=== PATIENT | female | born 1995 | race Caucasian/White ===

== ENCOUNTER → 2017-03-11 22:41 | Observation (INO) ==
--- NOTE | 2017-03-11 20:25 | OB/GYN Progress Note ---
Date of Encounter: 03/11/17 Time of Encounter: 19:57 - Assessment and Plan (1) Decreased movement Current Visit: Yes Status: Acute Fetus responded to scalp stimulation NST was category 1 following scalp stimulation Now category 2 Failure of oral hydration so we have started IV, LR bolus Will continue to monitor Qualifiers: Fetus number: single or unspecified fetus Trimester: third trimester Qualified Code(s): O36.8130 - Decreased movements, third trimester, not applicable or unspecified (2) 33 weeks gestation of Current Visit: Yes Status: Acute Cervix closed and thick Tocometry monitored and was reassuring Patient discharged in stable condition (3) Non-stress test reactive Current Visit: Yes Status: Acute Baseline 125-130 bpm moderate variability (4) Vaginal discharge Current Visit: Yes Status: Acute Vaginosis panel negative. Subjective - Subjective Principal diagnosis: decreased movement Interval history: Elyssa Puentes is a 21 year-old female at 33 weeks and 6 days who presents to labor and delivery for decreased movement starting today. She also describes pain, "like period cramps," that started this morning. She admits to scant vaginal bleeding that has occured intermittently over the past 2 weeks. She additionally acknowledges some vaginal discharge. Patient admits to shortness of breath that does not affect activity, as well as intermittent bilateral LE swelling. Patient denies nausea, vomiting, diarrhea, chest pain, headache, visual disturbance, and upper abdominal pain. 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 She is a patient of Dr. Ricci. She was last seen in the office by Belen Mancia CNM on 03/06/2017. Blood type: O-, received RhoGAM Rubella and Varicella Immune Hep B negative All other serologies negative Antepartum ROS: contractions, other (decreased movement) Objective - Exam FHR: category 1 FHR comments: Baseline 125-130 bpm Moderate variability 15x15 accelerations Auscultation: bilateral: normal Abdomen: Present: normal appearance, soft, gravid. Absent: tenderness Uterus: Present: normal, firm. Absent: tenderness Cervical dilation: Closed Cervix effacement: Thick Comments: SSE - visually closed cervix. Increase in vaginal discharge, collected for vaginosis panel - negative.
[2017-03-11 20:44] LABS: Bilirubin,Urine Negative (Negative); Blood,Urine Negative (Negative); Clarity,Urine Clear (Clear); Color,Urine Yellow (Yellow); Glucose,Urine (UA) 100 mg/dL (Normal); Ketones,Urine Negative (Negative); Leukocyte Esterase,Urine Negative (Negative); Nitrite,Urine Negative (Negative); Protein,Urine Trace mg/dL (Neg-Trace); Specific Gravity,Urine 1.022 (1.010-1.025); Urobilinogen,Urine Normal (Normal)
[2017-03-11 20:46] LABS: Hyaline Casts,Urine None Seen per lpf (None-Few); RBC,Urine 0-3 per hpf (0-3); WBC,Urine 0-3 per hpf (0-3)
[2017-03-11 20:49] LABS: Amphetamine Screen,Urine Negative ng/mL (Cutoff=1000); Barbiturate Screen,Urine Negative ng/mL (Cutoff=200); Benzodiazepines Screen,Urine Negative ng/mL (Cutoff=200); Cannabinoid Screen,Urine Negative ng/mL (Cutoff = 50); Cocaine Screen,Urine Negative ng/mL (Cutoff= 300); Opiate Screen,Urine Negative ng/mL (Cutoff=300); Phencyclidine Screen,Urine Negative ng/mL (Cutoff=25)
[2017-03-11 20:59] LABS: Bacteria,Urine Few per hpf (None-Few); Squamous Epithelial Cell,Urine Few per lpf (None-Few)
[2017-03-11 21:29] LABS: Candida DNA Not Detected (Not Detect); Gardnerella DNA Not Detected (Not Detect); Trichomonas DNA Not Detected (Not Detect)
[~2017-03-11 22:41] MED LIST: Ringers Solution, Lactated 1,000 ML IVC ONE
== END | disposition home or self-care (01) ==
LOC: 1NENULAB
PROVIDERS: ADMIT Advanced Practice Midwife; ATTEND Advanced Practice Midwife

== ENCOUNTER → 2017-03-12 16:46 | Observation (INO) ==
--- NOTE | 2017-03-12 15:38 | OB/GYN Progress Note ---
Date of Encounter: 03/12/17 Time of Encounter: 15:36 - Assessment and Plan (1) 34 weeks gestation of Current Visit: Yes Status: Acute Admit for observation and labor evaluation (2) Vaginal discharge during in third trimester Current Visit: Yes Status: Acute Nitrazine for ROM (3) Decreased movement during in third trimester, antepartum Current Visit: Yes Status: Acute Non-stress test Qualifiers: Fetus number: single or unspecified fetus Qualified Code(s): O36.8130 - Decreased movements, third trimester, not applicable or unspecified Subjective - Subjective Principal diagnosis: Decreased movement, LOF, ctx Interval history: Pt is a at 34 weeks here with complaint of decreased movement, leakage of fluid and ctx. Antepartum ROS: new complaints (Decreased movement), loss of fluid (Pt states LOF stopped at 1400), contractions Objective - Vital Signs Vital Signs: Intake and Output 03/11/17 03/12/17 03/12/17 23:59 07:59 15:59 Other: Weight 65.2 kg Patient Weight 03/12/17 23:59 Weight 65.2 kg - Exam FHR: category 1 FHR comments: FHR 120 bpm, moderate variability, +15x15 accels, no decels. Category 1 tracing Auscultation: bilateral: normal Abdomen: Present: normal appearance, soft, gravid Uterus: Present: normal Cervical dilation: 1 Cervix effacement: 70% station: ballotable Comments: Per RN. Nitrazine negative.
--- NOTE | 2017-03-12 16:47 | Discharge Summary ---
Date of Encounter: 03/12/17 Time of Encounter: 16:46 - Discharge Diagnosis (1) 34 weeks gestation of Priority: Primary Status: Acute (2) Vaginal discharge during in third trimester Priority: Secondary Status: Acute (3) Decreased movement during in third trimester, antepartum Priority: Secondary Status: Acute Comments: Reactive NST FHR 125 bpm moderate variability +15x15 accels no decels noted. Cat. 1 tracing. Irregular contractions noted. Qualifiers: Fetus number: single or unspecified fetus Qualified Code(s): O36.8130 - Decreased movements, third trimester, not applicable or unspecified - Discharge Medications Home Medications: Aspirin [Lo-Dose Aspirin EC] 81 mg PO DAILY 03/11/17 [History] Vit/Iron Fumarate/FA [ Tablet] 1 each PO DAILY 03/11/17 [ History] Allergies/Adverse Reactions: 3 Allergy/AdvReac Type Severity Reaction Status Date / Time No Known Allergies Allergy Verified 03/12/17 15:20 Date of admission: 03/12/17 14:41 Primary care physician: PCP NONE Discharging clinician: Belen Mancia Anticipated date of discharge: 03/12/17 - Patient Status Disposition: Home, Self-Care Condition: Good Functional capacity at discharge: independent ambulation - Discharge Instructions Follow Up With: NONE,PCP [Primary Care Provider] - Hector Ricci DO [Partnered Physician] - Additional Instructions: LABOR AND DELIVERY DISCHARGE INSTRUCTIONS Signs and Symptoms to be Reported to your Doctor Immediately: * Sudden gush, continuous or intermittent lead of fluid from vagina (note the time of gush and color of fluid) * Onset of bright red vaginal bleeding with or without pain (if you had a vaginal exam during this visit you may notice some dark red spotting. This is normal.) * Lower abdominal cramping or backache that is premenstrual-like feeling. * More than 6 contractions in one hour. * Burning during urination, having to urinate more frequently or pain in your mid-back. * A change in the baby's activity. This could be an increase or decrease in activity. * Severe headache which does not go away with tylenol. * Sudden swelling in the face, hands, arms and/or legs. * Upper abdominal pain - sometimes associated with heartburn or nausea and is not relieved by Maalox, Mylanta or Tums. * Dizziness or blurred vision or visual disturbances (seeing stars/lights). * Kick Counts One hour after a meal, lay down on one side in a quiet place. Count the number of abdoul the baby moves during an hour. If less than 6 movements, notify your physician. Diet: *Force fluids - 8-10 tall glasses of fluid per day. May include popsicles and jello. *Limit caffeine - this includes chocolate, coffee, tea, any soft drink containing such as all ulises, Nii Yellow and Mountain Dew follow up next schedule appointment - Diet and Activity Activity: increase activity as tolerated Diet: regular diet Hospital Course ARCHITECTURAL DRAFTER Time Attestation: Total time spent providing and/or coordinating discharge services: Time Spent: Less than 30 minutes Exam - Constitutional General appearance IM: A&O X 3, pleasant, answers questions appropriately - Respiratory Respiratory exam: Present: CTAB - Cardiovascular Cardiovascular exam IM: Present: RRR, +S1, +S2 - GI/Abdominal GI/Abdominal exam IM: normal bowel sounds - Extremities Exam Extremities exam IM: Present: normal capillary refill - Neurological Exam Neurological exam: alert, oriented X3, reflexes normal - VTE Reasons for not Prescribing Prophylaxis: Treatment not Indicated - Low risk for VTE
== END | disposition home or self-care (01) ==
LOC: 1NENULAB
PROVIDERS: ADMIT Obstetrics & Gynecology; ATTEND Obstetrics & Gynecology

== ENCOUNTER → 2017-03-30 22:21 | Observation (INO) ==
[2017-03-30 20:05] LABS: Bilirubin,Urine Negative (Negative); Blood,Urine Negative (Negative); Clarity,Urine Clear (Clear); Color,Urine Yellow (Yellow); Glucose,Urine (UA) Normal (Normal); Ketones,Urine Trace mg/dL (Negative); Leukocyte Esterase,Urine Negative (Negative); Nitrite,Urine Negative (Negative); PH,Urine 6.5 pH Units (5.0-8.0); Protein,Urine Negative (Neg-Trace); Specific Gravity,Urine 1.029 (1.010-1.025); Urobilinogen,Urine Normal (Normal)
--- NOTE | 2017-03-30 20:21 | OB/GYN Progress Note ---
Date of Encounter: 03/30/17 Time of Encounter: 20:20 - Assessment and Plan (1) and not yet delivered in third trimester Current Visit: Yes Status: Acute (2) 36 weeks gestation of Current Visit: Yes Status: Acute (3) Dehydration during Current Visit: Yes Status: Acute Patient will get an IV bolus to see if we can decrease the irritability once stable if no further cervical change noted will be discharged home (4) uterine contractions in third trimester, antepartum Current Visit: Yes Status: Acute (5) Thrombophilia Current Visit: No Status: Chronic Subjective - Subjective Interval history: Patient is a 21-year-old 2 para 1 at 36-4/7 weeks who presents to labor and delivery complaining of contractions since early this afternoon. Patient states contractions were coming anywhere from every 2-5 minutes lasting 30-60 seconds. Patient denies any bleeding recent intercourse or significant vaginal discharge. Patient denies any dysuria urgency frequency. Upon arrival to labor and delivery patient was noted to be having occasional contractions but moderate amount of uterine irritability. On initial examination patient was 2 cm similar to what she was in the office 3 days ago. Patient urinalysis was unremarkable other than she was dehydrated with elevated specific gravity and ketones. Recommended IV hydration to see if we can get the irritability to subside. Antepartum ROS: contractions Objective - Vital Signs Vital Signs: Intake and Output 03/30/17 03/30/17 03/30/17 07:59 15:59 23:59 Other: Weight 67.6 kg Patient Weight 03/30/17 23:59 Weight 67.6 kg - Exam FHR: category 1 FHR comments: heart tones 140s reactive occasional contractions seen with uterine irritability Abdomen: Present: gravid Cervical dilation: 2 Cervix effacement: 50 station: -3 - Labs Labs: Abnormal lab results Ur Specific [place] 1.029 (1.010-1.025) H 03/30/17 19:50 Urine Ketones Trace mg/dL (Negative) H 03/30/17 19:50
[2017-03-30 22:10] LABS: Amphetamine Screen,Urine Negative ng/mL (Cutoff=1000); Barbiturate Screen,Urine Negative ng/mL (Cutoff=200); Benzodiazepines Screen,Urine Negative ng/mL (Cutoff=200); Cannabinoid Screen,Urine Negative ng/mL (Cutoff = 50); Cocaine Screen,Urine Negative ng/mL (Cutoff= 300); Opiate Screen,Urine Negative ng/mL (Cutoff=300); Phencyclidine Screen,Urine Negative ng/mL (Cutoff=25)
[~2017-03-30 22:21] MED LIST changes: -Ringers Solution, Lactated 1,000 ML IVC ONE; +Ringers Solution, Lactated 1,000 ML ONE; +Ringers Solution, Lactated 500 ML IVC ONE
== END | disposition home or self-care (01) ==
LOC: 1NENULAB
PROVIDERS: ADMIT Obstetrics & Gynecology; ATTEND Obstetrics & Gynecology

== ENCOUNTER 2017-04-16 05:26 | Inpatient (IN) ==
[2017-04-16] MEDS ORDERED: Famotidine 20 MG/2 ML VIAL IVP PRN (05:37)
[2017-04-16] MEDS ORDERED: Naloxone 0.4 MG/ML INJ IVP PRN (05:37)
[2017-04-16] MEDS ORDERED: Metoclopramide 10 MG/2 ML VIAL IVP PRN (05:37)
[2017-04-16] MEDS ORDERED: Ondansetron 4 MG/2 ML VIAL IVP PRN (05:37)
[2017-04-16] MEDS ORDERED: miSOPROStol 100 MCG TABLET PO PRN (05:38)
[2017-04-16] MEDS ORDERED: D5% in 0.45% NACL 1,000 ML IVC SCH (05:45)
[2017-04-16] MEDS ORDERED: Ringers Solution, Lactated 1,000 ML IVC SCH (05:45)
--- NOTE | 2017-04-16 06:05 | OB/GYN History & Physical ---
Date of Encounter: 04/16/17 Time of Encounter: 06:15 Assessment and Plan (1) 39 weeks gestation of Current visit: Yes Status: Acute (2) Elective induction of labor planned Current visit: Yes Status: Acute Patient will be admitted for induction of labor. - IV fluids. - Cytotec. - FHR monitoring. - CBC - UDS History of Present Illness Chief complaint: Induction of Labor HPI: Ms. Puentes is a 21 year old female at 39 wks gestation with a PMH of Factor II deficiency that presents for induction of labor. She admits to good movement. She denies any vaginal fluid leakage or bleeding. She denies any contractions. She admits to occasional headaches and denies any vision changes. She denies chest pain, nausea, vomiting, fever, dysuria, or diarrhea. GBS: negative HIV Ag/Ab: non-reactive T. Pallidum: negative Rubella Ab: positive Varicella Ab: positive Blood type: O- HepBSAg: non-reactive (10/01/16) Past Med Surg Social Fam HX - Past Medical History Medical history: other Psychiatric history: no psych history - Past Surgical History Surgical History: appendectomy, other - Social History Smoking Status: Former smoker Smokeless Tobacco Status: No Alcohol use: none Drug use: none - Family History Mother Adopted: No Family Member Ethnicity: Non- Living Status: Still Living Hx Family Cardiac Disorders: No Hx Family Respiratory Disorders: No Hx Family Cancer: No Hx Family GI Disorders: No Hx Family Endocrine Disorder: No Hx Family Neuromuscular Disorders: No Hx Family Neurologic Disorders: No Hx Family HEENT Disorders: No Hx Family Autoimmune Disorders: No Obstetrical History - Pregnancies : 2 Para: 1 Term: 0 : 0 Ab's: 0 Livin Medications and Allergies Aspirin [Lo-Dose Aspirin EC] 81 mg PO DAILY 03/11/17 [History] Vit/Iron Fumarate/FA [ Tablet] 1 each PO DAILY 03/11/17 [ History] 3 Allergy/AdvReac Type Severity Reaction Status Date / Time No Known Allergies Allergy Verified 04/16/17 05:52 Exam - Vital Signs Vital signs: BP: 118/78 HR: 82 FHR: 121 [place]: 35 - Constitutional Constitutional: well developed, well nourished, no acute distress, average body habitus - Lungs Respiratory exam: CTAB - Cardiovascular Cardiovascular exam: RRR, +S1, +S2 - Abdomen Abdomen: Present: bowel sounds normal, gravid, non tender - Extremities Extremities exam: full ROM, normal capillary refill, normal inspection, radial pulses palpable and symmetrical Deep Tendon Reflex Grade: 2+ Normal - Cervix Dilation: 2 (2-3 cm per nurse) Effacement: 80 (per nurse) Station: -2 Results All other labs normal. - VTE Reasons for not Prescribing Prophylaxis: Treatment not Indicated - Low risk for VTE
[2017-04-16 06:22] LABS: Basophils # 0.1 K/mcL (0.0-0.2); Basophils % 0.7 %; Eosinophils # 0.2 K/mcL (0.0-0.6); Eosinophils % 1.7 %; Hematocrit 31.4 % (35.3-44.9); Immature Granulocytes % 0.5 % (0-4); Lymphocytes # 1.7 K/mcL (0.6-4.6); Lymphocytes % 19.6 %; Mean Corpuscular HGB Conc 31.8 g/dL (31.6-35.5); Mean Corpuscular Hemoglobin 23.8 pg (28.0-33.3); Mean Corpuscular Volume 74.6 fL (83.0-100.0); Mean Platelet Volume 10.5 fL (9.4-12.4); Monocytes # 0.7 K/mcL (0.0-1.3); Monocytes % 7.8 %; Neutrophils # 6.2 K/mcL (1.6-8.9); Platelet Count 187 K/mcL (140-400); Red Blood Count 4.21 M/mcL (3.82-4.97); Red Cell Distribution Width 16.2 % (11.5-14.5); Segmented Neutrophils % 69.7 %
[2017-04-16 06:27] LABS: Amphetamine Screen,Urine Negative ng/mL (Cutoff=1000); Barbiturate Screen,Urine Negative ng/mL (Cutoff=200); Benzodiazepines Screen,Urine Negative ng/mL (Cutoff=200); Cannabinoid Screen,Urine Negative ng/mL (Cutoff = 50); Cocaine Screen,Urine Negative ng/mL (Cutoff= 300); Opiate Screen,Urine Negative ng/mL (Cutoff=300); Phencyclidine Screen,Urine Negative ng/mL (Cutoff=25)
[2017-04-16] MEDS ORDERED: *HR* Nalbuphine 20 MG/ML AMPUL IVP PRN (10:26)
--- NOTE | 2017-04-16 12:31 | Anesthesia Evaluation PreOp ---
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 Significant HX Other Medical History: Bleeding (Factor 2 deficincy MTHFR hematology report noted, Discussed w Dr Nash), GERD Anesthesia History: No Prior Anesthetic Complications, Past Anesthesia (septo, appy, tonsil, geraldo) : Yes Test: Positive Alcohol Use: none Drug use: none Medications and Allergies Aspirin [Lo-Dose Aspirin EC] 81 mg PO DAILY 03/11/17 [History] Vit/Iron Fumarate/FA [ Tablet] 1 each PO DAILY 03/11/17 [ History] 3 Allergy/AdvReac Type Severity Reaction Status Date / Time No Known Allergies Allergy Verified 04/16/17 05:52 - Meds/Allergy Pre-op Review Medications Reviewed: Yes Allergies Reviewed: Yes Beta Blockers on Current Med List: No Anesthesia Results - Labs 04/16/17 06:09 Anesthesia Exam see nsg note Height: 5'4" Weight: 76 k NPO (# of Hours): 4 Pain Scale: 4 Pain Scale Used: Numeric (1 - 10) - HEENT Pupil (Motor): Pupils equal Mallampati: II Teeth: Normal Oral Opening: Greater than 3 - RUBBER WORKER LOC: Oriented RUBBER WORKER Motor: Normal RUE, Normal LUE, Normal RLE, Normal LLE, Normal Face RUBBER WORKER Sensory: Normal: RUE, LUE, RLE, LLE, Face - Cardiac Rhythm: Regular Murmur: None - Pulmonary Breath Sounds: bilateral Clear Respiratory Effort: Symmetrical Anesthesia Assess/Plan ASA Score: 2 Modified Paulino Scale for Level of Consciousness: Cooperative, oriented, and tranquil Anesthetic Plan: Regional Autologous Blood: No Monitoring Plan: Standard Monitors Recovery Plan: Other (risks discussed, questions answered, consented)
[2017-04-16] MEDS ORDERED: *HR* FentaNYL (PF) 100 MCG/2 ML VIAL EP ONE (12:59)
[2017-04-16] MEDS ORDERED: *HR* Ropivacaine/PF 0.2% 10 ML AMPUL EP ONE (12:59)
[2017-04-16] MEDS ORDERED: Epidural Premix (fent/bupiv) 110 ML EP SCH (13:00)
[2017-04-16] MEDS ORDERED: *HR* Ropivacaine/PF 0.2% 10 ML AMPUL ONE ×2 (13:01→17:25)
[2017-04-16] MEDS ORDERED: *HR* FentaNYL (PF) 100 MCG/2 ML VIAL ONE ×2 (13:01→17:25)
[2017-04-16] MEDS ORDERED: Epidural Premix (fent/bupiv) 110 ML EP ONE (13:02)
--- NOTE | 2017-04-16 13:29 | Anesthesia Procedures ---
Date of Encounter: 04/16/17 Time of Encounter: 13:27 Procedures: Anesthesia - Epidural/Spinal Patient ID/Chart reviewed: Yes Patient examined: Yes OB Eval: Gestational age: 39 OB Eval: : 2 OB Eval: Hx Para: 1 OB Eval: Dilated at (cm): 3 OB Eval: Contractions: Non-stressed pattern Consent Obtained: Yes Supplemental Oxygen: None/Room Air Site Prep: Aseptic Technique, Sterile prep and drape, 0.5% Chlorhexidine/Alcohol Patient position: upright Local Anesthetic: Lidocaine 1% Amount of Local Anesthetic used: 3 Touhy Needle Gauge: 18 Touhy Needle Depth (cm): 7 Catheter Depth at Skin (cm): 15 Test Dose (1.5% Lido + Epi): Volume given (mls): 3 Test Dose Result: Negative Loading Dose: Fentanyl (mcg): 100 Loading Dose: Other: ropivicaine 0.2% 10 cc Loading Dose Administered: Thru Touhy Needle Infusion Med: 0.125% Bupivacaine w/ 2 mcg/ml Fentanyl Infusion Rate (mls/hr): 15 (pcea 5 cc q 30") Catheter Secured in Place: Tegaderm Loss of Resistance (MISYS): Yes Blood: Yes CSF: Yes (see note below) Paresthesia: No Procedure: aseptic, upon entry to epidural space pt jumped and lrg vol of clear fluid exited needle, withdrew needle immediately and proceeded to next space above without incident aseptic throughout, tolerated well Vitals + FHT's: 119/76 68 16 fht 122
--- NOTE | 2017-04-16 13:55 | Anesthesia Evaluation Post Op ---
Date of Encounter: 04/16/17 Time of Encounter: 13:53 - Vital Signs Vital Signs: 124/70 78 16 - Lungs Lungs: Clear Ascult./Percussion - Airway Airway: Non-obstructed - Cardiovascular Regular Rate - Mental Status Mental Status: Alert & Oriented, Answers Appropriately - Pain Pain Scale: 4 Pain Scale used: Numeric (1 - 10) - Nausea Vomiting Nausea Vomiting: Not Present - Hydration Hydration: NPO - Discharge PostOp Status: Transfer Patient to floor (VSS, dilaudid and morphine in PACU, no anestheti omplications)
--- NOTE | 2017-04-16 14:27 | OB Labor Progress Note ---
Date of Encounter: 04/16/17 Time of Encounter: 14:25 Labor Progress Note - Subjective Subjective: Patient resting comfortably in bed with epidural in place - Vital Signs Vital Signs: VSS - Cervix Cervix: 4/80/-2 midposition and soft - Heart Tones Heart Tones: 120 with moderate variability - [place]: Contractions every 2-4 minutes lasting 45-60 seconds. - Interventions Interventions: AROM for small amount of clear fluid; patient and fetus tolerated well - Plan Plan: Continue routine labor management GBS negative Pain is well controlled Consider pitocin for augmentation Anticipate vaginal delivery POC per consult with Dr Barrett.
[2017-04-16] MEDS ORDERED: Oxytocin 20 units/ LR 1000 mL 20 UNIT/1,000 ML BAG IVC ONE ×3 (17:18→21:29)
--- NOTE | 2017-04-16 17:31 | Anesthesia Progress Note ---
Date of Encounter: 04/16/17 Time of Encounter: 17:30 Anesthesia Note - Note Note: 04/16/17 17:30 Epidural bolus for breakthrough pain fentanyl 100 mcg ropivicaine 0.2% 5 cc
--- NOTE | 2017-04-16 19:30 | OB/GYN Procedure Note ---
Delivery - Delivery Date: 04/16/17 Provider: Fabio Barrett Intrapartum events: none Delivery induction: AROM, misoprostol Estimated Blood Loss: 200 - Infant (s) Infant A Delivery Date: 04/16/17 Delivery Time: 18:37 Presentation: vertex Position: HIEN Gender: Male Viability: Viable Weight Gram: 3.405 kg at 1 minute: 8 at 5 mins: 9 Shoulder Dystocia: not encountered Placenta: spontaneous Cord: 3 umbilical vessels - Repair Laceration Description: None - Complications Delivery complications: none - Disposition Mom disposition: stable in LDR disposition: stable in LDR - Comments Comments: Pt s/p vacuum extraction of liveborn male infant without incident. Vacuum applied at + 3 station due to terminal bradycardia to 50 bpm for 3 min. Vaccum applied to pressure of 550mmhg for 10 sec and infant delivered from HIEN presentation. weight was found to be 7lb 8oz and APGARS 8 at min and 9 at 5 min. No laceration. EBL 200cc. Mother and infant recovered in LDR.
[2017-04-16] MEDS ORDERED: Measles/Mumps/Rubella Vacc 0.5 ML VIAL SQ PRN (21:29)
[2017-04-16] MEDS ORDERED: Sennosides 8.6 MG TABLET PO PRN (21:29)
[2017-04-16] MEDS ORDERED: Acetaminophen 325 MG TABLET PO PRN (21:29)
[2017-04-16] MEDS ORDERED: Rho Immune Globulin 1,500 UNIT SYRINGE IM PRN (21:29)
[2017-04-16] MEDS: Ibuprofen 600 MG TABLET PO PRN (22:02)
[2017-04-16] MEDS: Oxytocin 20 units/ LR 1000 mL 20 UNIT/1,000 ML BAG IVC SCH (22:05)
[2017-04-16] MEDS ORDERED: Caffeine Citrate Oral Soln 60 MG/3 ML PO PRN (23:15)
[2017-04-16] MEDS ORDERED: *HR* Morphine 2 MG/ML SYRINGE IVP PRN (23:15)
--- NOTE | 2017-04-16 23:28 | Anesthesia Progress Note ---
Date of Encounter: 04/16/17 Time of Encounter: 23:26 Anesthesia Note - Note Note: 04/16/17 23:26 called from post re NAIK began order set for post dural puncture NAIK and spoke w patient about conservative treatment with possible need for blood patch
[2017-04-17] MEDS: *HR* OxyCODONE/APAP 5/325 TABLET PO PRN ×2 (00:57→05:07)
[2017-04-17] MEDS ORDERED: CAFFEINE 200 MG PO PRN (05:01)
[2017-04-17] MEDS: Oxytocin 20 units/ LR 1000 mL 20 UNIT/1,000 ML BAG IVC SCH (05:10)
[2017-04-17 06:40] LABS: Basophils % 0.2 %; Eosinophils # 0.1 K/mcL (0.0-0.6); Eosinophils % 1.4 %; Hematocrit 29.5 % (35.3-44.9); Hemoglobin 9.2 g/dL (11.5-15.4); Immature Granulocytes % 0.7 % (0-4); Lymphocytes # 1.5 K/mcL (0.6-4.6); Lymphocytes % 15.4 %; Mean Corpuscular HGB Conc 31.2 g/dL (31.6-35.5); Mean Platelet Volume 10.7 fL (9.4-12.4); Monocytes # 0.6 K/mcL (0.0-1.3); Neutrophils # 7.5 K/mcL (1.6-8.9); Platelet Count 148 K/mcL (140-400); Red Blood Count 3.83 M/mcL (3.82-4.97); Red Cell Distribution Width 16.3 % (11.5-14.5); Segmented Neutrophils % 76.3 %
[2017-04-17] MEDS ORDERED: Acetaminophen/Butalbital/CaffeineTABLET PO PRN (08:21)
[2017-04-17] MEDS ORDERED: Lanolin 7 G OINT...G. TP PRN (08:21)
--- NOTE | 2017-04-17 08:25 | OB/GYN Progress Note ---
Date of Encounter: 04/17/17 Time of Encounter: 08:22 - Assessment and Plan (1) Headache Current Visit: Yes Status: Acute start fioricet Anesthesia to see patient for possible blood patch Qualifiers: Headache type: unspecified Headache chronicity pattern: acute headache Intractability: not intractable Qualified Code(s): R51 - Headache (2) Vaginal delivery Current Visit: No Status: Resolved Subjective - Subjective Principal diagnosis: day 1 vaginal delivery Interval history: Patient resting in bed. Patient reports headache without relief. Anesthesia to discuss blood patch today. Will start fioricet for headache. Patient reports: appetite normal, voiding normally, pain well controlled, ambulating normally [place]: doing well, nursing well Objective - Latest Vital Signs Latest vital signs: Vital Signs Temp Pulse Pulse Resp BP Pulse Ox 04/17/17 04:57 98.3 F 74 74 14 109/69 97 04/16/17 23:15 99 F 65 65 16 111/64 98 04/16/17 22:15 98.2 F 72 72 16 120/74 97 04/16/17 21:30 68 16 04/16/17 21:15 97.8 F 68 16 117/74 98 Intake and Output 04/16/17 04/17/17 04/17/17 23:59 07:59 15:59 Intake Total 1000 / 1000 Output Total 700 / 700 1000 / 1000 Balance -700 / -700 0 / 0 Intake: IV Fluids 1000 / 1000 Pitocin 20 unit In 1,000 ml @ 1000 / 1000 125 mls/hr IVC .Q8H SHAJI Rx#: [id number] Output: Urine 700 / 700 1000 / 1000 Other: Weight 69.4 kg - Exam Lungs: bilateral: normal Chest: Normal S1, Normal S2 Extremities: Present: normal Abdomen: Present: normal appearance, soft Uterus: Present: normal, firm Uterus Position: 1 Finger Below Umbilicus, Midline - Labs Labs: Laboratory Results - last 24 hr 04/17/17 06:07 WBC 9.8 RBC 3.83 Hgb 9.2 L Hct 29.5 L MCV 77.0 L MCH 24.0 L MCHC 31.2 L RDW 16.3 H Plt Count 148 MPV 10.7 Immature Gran % 0.7 Seg Neutrophils % 76.3 Lymphocytes % 15.4 Monocytes % 6.0 Eosinophils % 1.4 Basophils % 0.2 Neutrophils # 7.5 Lymphocytes # 1.5 Monocytes # 0.6 Eosinophils # 0.1 Basophils # 0.0
[2017-04-17] MEDS: Prenatal Vit/FA 1 EACH TABLET PO SCH (10:12)
[2017-04-17] MEDS: Ibuprofen 800 MG TABLET PO PRN (12:41)
[2017-04-17] MEDS ORDERED: Ringers Solution, Lactated 1,000 ML ONE (13:23)
[2017-04-17] MEDS ORDERED: Ringers Solution, Lactated 1,000 ML IVC SCH (13:30)
[2017-04-17] MEDS ORDERED: Lidocaine -MPF 2% 2 ML VIAL ONE (13:40)
[2017-04-17] MEDS ORDERED: *HR* HYDROmorphone 2 MG/ML SYRINGE ONE (13:41)
--- NOTE | 2017-04-17 14:59 | Anesthesia Procedures ---
Date of Encounter: 04/17/17 Time of Encounter: 13:49 Procedures: Anesthesia - Epidural Blood Patch Patient ID/Chart reviewed: Yes Patient examined: Yes Puncture type: Epidural Performed at: [facility] Symptoms consistent with Postdural Puncture Headache (PDPH): Yes (postural NAIK, with light sensitivity ) Patient agrees to Blood Patch: Yes Patient informed: of potential comp, patient wishes to proceed. Any signs of infection or bacteremia: No Patient on blood thinners: No Consent Obtained: Yes Site Prep: Aseptic Technique, Sterile prep and drape, 0.5% Chlorhexidine/Alcohol Patient position: upright Local Anesthetic Used: Lidocaine 1% Amount of anesthesia used (mls): 2 Touhy Needle Gauge: 18 Site of blood draw: right: Wrist (3 times) Interspace Used: L3-L4 Autologous blood injected (cc): 20 Loss of Resistance (MISSY): Yes (saline) Blood: No CSF: No Paresthesia: No (bilateral legs minor according to patient )
[2017-04-17] MEDS: Ibuprofen 600 MG TABLET PO PRN (18:48)
[2017-04-18] MEDS: Ibuprofen 800 MG TABLET PO PRN (04:08)
[2017-04-18 08:32] VITALS: BP 121/81
[2017-04-18] MEDS: Prenatal Vit/FA 1 EACH TABLET PO SCH (08:45)
--- NOTE | 2017-04-18 09:04 | Discharge Summary ---
Date of Encounter: 04/18/17 Time of Encounter: 09:01 - Discharge Diagnosis (1) Vaginal delivery Priority: Primary Status: Resolved Comments: Pt states feels well. Pain well managed on po pain medication. Bleeding with small clots. Desires discharge - Discharge Medications Prescriptions: Ibuprofen [Motrin] 600 mg PO Q6HR PRN #60 tablet PRN Reason: Cramping Docusate [Colace] 100 mg PO BID #60 capsule Ferrous Sulfate 325 mg PO DAILY #60 tablet Home Medications: Vit/Iron Fumarate/FA [ Tablet] 1 each PO DAILY 03/11/17 [ History] Acetaminophen [Tylenol] 650 mg PO Q6HR PRN tablet 04/18/17 [Rx] Calcium Carbonate [Tums] 1,000 mg PO Q4HR PRN tab.chew 04/18/17 [Rx] Docusate [Colace] 100 mg PO BID #60 capsule 04/18/17 [Rx] Ferrous Sulfate 325 mg PO DAILY #60 tablet 04/18/17 [Rx] Ibuprofen [Motrin] 600 mg PO Q6HR PRN #60 tablet 04/18/17 [Rx] Lanolin [Lansinoh] 1 appl TP TID PRN oint...g. 04/18/17 [Rx] Mupirocin [Bactroban Oint] 1 appl TP BID tube 04/18/17 [Rx] Vit/FA 1 each PO DAILY tablet 04/18/17 [Rx] Allergies/Adverse Reactions: 3 Allergy/AdvReac Type Severity Reaction Status Date / Time No Known Allergies Allergy Verified 04/16/17 05:52 Data Procedures and tests throughout hospitalization: Laboratory Tests 04/16/17 04/16/17 04/16/17 06:09 06:09 19:12 WBC 8.8 RBC 4.21 Hgb 10.0 L Hct 31.4 L MCV 74.6 L MCH 23.8 L MCHC 31.8 RDW 16.2 H Plt Count 187 MPV 10.5 Immature Gran % 0.5 Seg Neutrophils % 69.7 Lymphocytes % 19.6 Monocytes % 7.8 Eosinophils % 1.7 Basophils % 0.7 Neutrophils # 6.2 Lymphocytes # 1.7 Monocytes # 0.7 Eosinophils # 0.2 Basophils # 0.1 Urine Opiates Screen Negative Ur Barbiturates Screen Negative Ur Phencyclidine Scrn Negative Ur Amphetamines Screen Negative U Benzodiazepines Scrn Negative Urine Cocaine Screen Negative U Marijuana (THC) Screen Negative Screen NEGATIVE Baby's Blood Type O RH POSITIVE Mother's Blood Type O RH NEGATIVE Rhogam Indicated YES Rhogam Req for Mother 1 04/17/17 06:07 WBC 9.8 RBC 3.83 Hgb 9.2 L Hct 29.5 L MCV 77.0 L MCH 24.0 L MCHC 31.2 L RDW 16.3 H Plt Count 148 MPV 10.7 Immature Gran % 0.7 Seg Neutrophils % 76.3 Lymphocytes % 15.4 Monocytes % 6.0 Eosinophils % 1.4 Basophils % 0.2 Neutrophils # 7.5 Lymphocytes # 1.5 Monocytes # 0.6 Eosinophils # 0.1 Basophils # 0.0 Urine Opiates Screen Ur Barbiturates Screen Ur Phencyclidine Scrn Ur Amphetamines Screen U Benzodiazepines Scrn Urine Cocaine Screen U Marijuana (THC) Screen Screen Baby's Blood Type Mother's Blood Type Rhogam Indicated Rhogam Req for Mother Labs on day of discharge: Labs from last 24 hours 04/16/17 19:12 Screen NEGATIVE Baby's Blood Type O RH POSITIVE Mother's Blood Type O RH NEGATIVE Rhogam Indicated YES Rhogam Req for Mother 1 Date of admission: 04/16/17 05:26 Primary care physician: PCP NONE Consults: 04/16/17 21:29 Consult to Boom Crane Operator [CONS] Routine Comment: Vaginal delivery, consult needed Discharging clinician: Mayra Curtis Anticipated date of discharge: 04/18/17 - Patient Status Disposition: Home, Self-Care Condition: Good Functional capacity at discharge: independent ambulation Overall status at discharge: patient is back to baseline - Discharge Instructions Follow Up With: NONE,PCP [Primary Care Provider] - - Diet and Activity Diet: regular diet Hospital Course Reason for admission: IUP at term Delivery: vacuum extraction Episiotomy: none Laceration: none Other procedures: none complications: none Discharge diagnosis: IUP at term delivered baby: male Hospital course: Delivery - Delivery Date: 04/16/17 Provider: Fabio Barrett Intrapartum events: none Delivery induction: AROM, misoprostol Estimated Blood Loss: 200 - (s) A Infant Delivery Date: 04/16/17 Delivery Time: 18:37 Presentation: vertex Position: HIEN Gender: Male Viability: Viable Weight Gram: 3.405 kg at 1 minute: 8 at 5 mins: 9 Shoulder Dystocia: not encountered Placenta: spontaneous Cord: 3 umbilical vessels - Repair Laceration Description: None - Complications Delivery complications: none - Disposition Mom disposition: stable in LDR disposition: stable in LDR - Comments Comments: Pt s/p vacuum extraction of liveborn male infant without incident. Vacuum applied at + 3 station due to terminal bradycardia to 50 bpm for 3 min. Vaccum applied to pressure of 550mmhg for 10 sec and delivered from HIEN presentation. Infant weight was found to be 7lb 8oz and APGARS 8 at min and 9 at 5 min. No laceration. EBL 200cc. Mother and recovered in LDR. Time Attestation: Total time spent providing and/or coordinating discharge services: Exam - Constitutional Vitals: Temp Pulse Resp BP Pulse Ox 98.4 F 61 12 121/81 99 04/18/17 08:00 04/18/17 08:00 04/18/17 08:00 04/18/17 08:00 04/18/17 08:00 General appearance IM: A&O X 3 - Respiratory Respiratory exam: Present: CTAB - Cardiovascular Cardiovascular exam IM: Present: RRR - GI/Abdominal GI/Abdominal exam IM: soft - Uterine Tone: Firm Uterus Position: At Umbilicus - Extremities Exam Extremities exam IM: Present: normal capillary refill, normal inspection - Neurological Exam Neurological exam: normal gait, oriented X3 - Psychiatric Additional comments: reports good mood.
== END 2017-04-18 14:30 | disposition home or self-care (01) | DRG 560 ==
LOC: 1NENULAB 05:26 → 1NENUOBS 21:30
PROVIDERS: ADMIT Obstetrics & Gynecology; ATTEND Obstetrics & Gynecology

== ENCOUNTER → 2018-10-11 22:30 | Observation (INO) ==
[2018-10-11 20:58] VITALS: BP 115/76
[2018-10-11 21:36] LABS: Amphetamine Screen,Urine Negative ng/mL (Cutoff=1000); Barbiturate Screen,Urine Negative ng/mL (Cutoff=200); Benzodiazepines Screen,Urine Negative ng/mL (Cutoff=200); Cannabinoid Screen,Urine Negative ng/mL (Cutoff = 50); Cocaine Screen,Urine Negative ng/mL (Cutoff= 300); Opiate Screen,Urine Negative ng/mL (Cutoff=300); Phencyclidine Screen,Urine Negative ng/mL (Cutoff=25)
--- NOTE | 2018-10-11 22:14 | Discharge Summary ---
Date of Encounter: 10/11/18 Time of Encounter: 22:17 - Discharge Diagnosis (1) 37 weeks gestation of Priority: Primary Status: Acute Comments: Admit to observation for labor evaluation and SROM evaluation (2) Non-stress test reactive Priority: Secondary Status: Acute Comments: FHR 135 bpm, moderate variability, +15x15 accels, no decels. (3) Vaginal discharge during in third trimester Priority: Secondary Status: Acute Comments: Patient reports intermittent fluid leakage since yesterday at 1300. Vaginosis panel collected and pending FERN negative, nitrazine negative. - Discharge Medications Prescriptions: No Action RX: Vit/Iron Fumarate/FA [ Tablet] 1 each PO DAILY RX: Ferrous Sulfate 325 mg PO DAILY #60 tablet RX: Acetaminophen [Tylenol] 650 mg PO Q6HR PRN tablet PRN Reason: Mild Pain RX: Ibuprofen [Motrin] 600 mg PO Q6HR PRN #60 tablet PRN Reason: Cramping RX: Calcium Carbonate [Tums] 1,000 mg PO Q4HR PRN tab.chew PRN Reason: Heartburn RX: Docusate [Colace] 100 mg PO BID #60 capsule RX: Lanolin [Lansinoh] 1 appl TP TID PRN oint...g. PRN Reason: Sore Nipples RX: Mupirocin [Bactroban Oint] 1 appl TP BID tube RX: Vit/FA 1 each PO DAILY tablet Home Medications: RX: Vit/Iron Fumarate/FA [ Tablet] 1 each PO DAILY 03/11/17 [History] RX: Acetaminophen [Tylenol] 650 mg PO Q6HR PRN tablet 04/18/17 [Rx] RX: Calcium Carbonate [Tums] 1,000 mg PO Q4HR PRN tab.chew 04/18/17 [Rx] RX: Docusate [Colace] 100 mg PO BID #60 capsule 04/18/17 [Rx] RX: Ferrous Sulfate 325 mg PO DAILY #60 tablet 04/18/17 [Rx] RX: Ibuprofen [Motrin] 600 mg PO Q6HR PRN #60 tablet 04/18/17 [Rx] RX: Lanolin [Lansinoh] 1 appl TP TID PRN oint...g. 04/18/17 [Rx] RX: Mupirocin [Bactroban Oint] 1 appl TP BID tube 04/18/17 [Rx] RX: Vit/FA 1 each PO DAILY tablet 04/18/17 [Rx] Allergies/Adverse Reactions: Allergy/AdvReac Type Severity Reaction Status Date / Time No Known Allergies Allergy Verified 04/16/17 05:52 Data Procedures and tests throughout hospitalization: Laboratory Tests 10/11/18 20:55 Urine Opiates Screen Negative Ur Barbiturates Screen Negative Ur Phencyclidine Scrn Negative Ur Amphetamines Screen Negative U Benzodiazepines Scrn Negative Urine Cocaine Screen Negative U Marijuana (THC) Screen Negative Ur Drug Screen Interp See Below Labs on day of discharge: Labs from last 24 hours 10/11/18 20:55 Urine Opiates Screen Negative Ur Barbiturates Screen Negative Ur Phencyclidine Scrn Negative Ur Amphetamines Screen Negative U Benzodiazepines Scrn Negative Urine Cocaine Screen Negative U Marijuana (THC) Screen Negative Ur Drug Screen Interp See Below Date of admission: 10/11/18 20:32 Discharging clinician: Anna Rojas Anticipated date of discharge: 10/11/18 - Patient Status Disposition: Home, Self-Care Condition: Good Functional capacity at discharge: independent ambulation Overall status at discharge: patient is progressing back to baseline - Discharge Instructions Follow Up With: Hector Ricci DO [Partnered Physician] - - Diet and Activity Activity: resume usual activities as tolerated Diet: regular diet Hospital Course FURNACE WORKER Hospital course: Patient arrived today at 37w2d with complaint of possible fluid leakage since 1300 yesterday. She also reports some irregular contractions. She reports positive movement and denies any vaginal bleeding. She reports the fluid leakage has been intermittent, clear and odorless, watery in nature. Nitrazine was negative, SVE 3-4 cm. SSE performed with no pooling visualized in vaginal vault. Large amount of thick mucous noted at cervical os, sample obtained for vaginosis panel. FERN negative, vaginosis panel results pending. Patient is to follow up as scheduled on Saturday for routine appointment with Dr. Ricci. Time Attestation: Total time spent providing and/or coordinating discharge services: Exam - Constitutional Vitals: Temp Pulse Resp BP 97.9 F 106 16 115/76 10/11/18 20:48 10/11/18 20:48 10/11/18 20:48 10/11/18 20:48 General appearance IM: A&O X 3, pleasant, no acute distress, answers questions appropriately - Respiratory Respiratory exam: Present: CTAB - Cardiovascular Cardiovascular exam IM: Present: RRR, +S1, +S2 - GI/Abdominal GI/Abdominal exam IM: normal bowel sounds - Rectal Rectal exam: deferred - External exam: normal external exam - Extremities Exam Extremities exam IM: Present: full ROM, normal capillary refill, normal inspection - Neurological Exam Neurological exam: alert, normal gait, oriented X3 - VTE Reasons for not Prescribing Prophylaxis: Treatment not Indicated - Low risk for VTE
[2018-10-11 23:09] LABS: Candida DNA DETECTED (Not Detect); Gardnerella DNA DETECTED (Not Detect); Trichomonas DNA Not Detected (Not Detect)
== END | disposition home or self-care (01) ==
LOC: 1NENULAB
PROVIDERS: ADMIT Registered Nurse; ATTEND Registered Nurse

== ENCOUNTER 2018-10-23 07:59 | Inpatient (IN) ==
--- NOTE | 2018-10-23 08:25 | Anesthesia Evaluation PreOp ---
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,) Anesthesia History: No Prior Anesthetic Complications, Past Anesthesia (2 previous epidurals, second one PDPH that required Blood Clots.) Alcohol Use: none Drug use: none Medications and Allergies Vit/Iron Fumarate/FA [ Tablet] 1 each PO DAILY 03/11/17 [History] Acetaminophen [Tylenol] 650 mg PO Q6HR PRN tablet 04/18/17 [Rx] Calcium Carbonate [Tums] 1,000 mg PO Q4HR PRN tab.chew 04/18/17 [Rx] Docusate [Colace] 100 mg PO BID #60 capsule 04/18/17 [Rx] Ferrous Sulfate 325 mg PO DAILY #60 tablet 04/18/17 [Rx] Ibuprofen [Motrin] 600 mg PO Q6HR PRN #60 tablet 04/18/17 [Rx] Lanolin [Lansinoh] 1 appl TP TID PRN oint...g. 04/18/17 [Rx] Mupirocin [Bactroban Oint] 1 appl TP BID tube 04/18/17 [Rx] Vit/FA 1 each PO DAILY tablet 04/18/17 [Rx] Allergy/AdvReac Type Severity Reaction Status Date / Time No Known Allergies Allergy Verified 04/16/17 05:52 Anesthesia Exam - HEENT Pupil (Motor): Pupils equal Mallampati: II Teeth: Normal Oral Opening: Greater than 3 - MANAGER EPIC LOC: Oriented MANAGER EPIC Motor: Normal RUE, Normal LUE, Normal RLE, Normal LLE, Normal Face MANAGER EPIC Sensory: Normal: RUE, LUE, RLE, LLE, Face - Cardiac Rhythm: Regular Murmur: None - Pulmonary Breath Sounds: bilateral Clear Respiratory Effort: Symmetrical Anesthesia Assess/Plan ASA Score: 2 Level of consciousness: Cooperative, Oriented Anesthetic Plan: General, Spinal, Epidural Monitoring Plan: Standard Monitors Recovery Plan: PACU
[2018-10-23] MEDS ORDERED: Epidural Premix (fent/bupiv) 110 ML EP SCH (08:30)
[2018-10-23] MEDS ORDERED: Metoclopramide 10 MG/2 ML VIAL IVP PRN (08:41)
[2018-10-23] MEDS ORDERED: *HR* Nalbuphine 10 MG/ML AMPUL IVP PRN (08:41)
[2018-10-23] MEDS ORDERED: Ondansetron 4 MG/2 ML VIAL IVP PRN (08:41)
[2018-10-23] MEDS ORDERED: Famotidine 20 MG/2 ML VIAL IVP PRN (08:41)
[2018-10-23] MEDS ORDERED: Ringers Solution, Lactated 1,000 ML IVC SCH (08:45)
[2018-10-23 09:06] LABS: Basophils % 0.5 %; Eosinophils # 0.1 K/mcL (0.0-0.6); Hematocrit 30.3 % (35.3-44.9); Immature Granulocytes % 0.7 % (0-4); Lymphocytes # 1.2 K/mcL (0.6-4.6); Lymphocytes % 14.4 %; Mean Corpuscular HGB Conc 29.7 g/dL (31.6-35.5); Mean Corpuscular Hemoglobin 21.7 pg (28.0-33.3); Mean Corpuscular Volume 73.2 fL (83.0-100.0); Mean Platelet Volume 11.3 fL (9.4-12.4); Monocytes # 0.6 K/mcL (0.0-1.3); Monocytes % 6.7 %; Neutrophils # 6.4 K/mcL (1.6-8.9); Platelet Count 175 K/mcL (140-400); Red Blood Count 4.14 M/mcL (3.82-4.97); Red Cell Distribution Width 16.1 % (11.5-14.5); Segmented Neutrophils % 76.7 %
[2018-10-23 09:15] LABS: Amphetamine Screen,Urine Negative ng/mL (Cutoff=1000); Barbiturate Screen,Urine Negative ng/mL (Cutoff=200); Benzodiazepines Screen,Urine Negative ng/mL (Cutoff=200); Cannabinoid Screen,Urine Negative ng/mL (Cutoff = 50); Cocaine Screen,Urine Negative ng/mL (Cutoff= 300); Opiate Screen,Urine Negative ng/mL (Cutoff=300); Phencyclidine Screen,Urine Negative ng/mL (Cutoff=25)
[2018-10-23] MEDS ORDERED: miSOPROStol 25 MCG TABLET PO PRN (09:38)
[2018-10-23] MEDS ORDERED: Oxytocin 20 units/ LR 1000 mL 20 UNIT/1,000 ML BAG IVC SCH ×3 (09:45→18:54)
--- NOTE | 2018-10-23 09:57 | OB/GYN History & Physical ---
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 Gandhi is a 23 year old female 39+0 weeks gestation presents to labor and delivery for induction of labor. Ports good movement, occasional c ontractions, denies vaginal bleeding or leaking of fluid. care with Dr. 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 Otherwise uncomplicated course. Labs: Past Med Surg Social Fam HX - Past Medical History Medical history: other Additional medical history: factor 2 deficiency Psychiatric history: no psych history - Past Surgical History Surgical History: appendectomy, other Additional surgical history: Tonsils - Social History Smoking Status: Never smoker Smokeless Tobacco Status: No Alcohol use: none Drug use: none - Family History Mother Adopted: [place]: Mary Gandhi Family Member Ethnicity: Non- Living Status: Still Living Hx Family Cardiac Disorders: No Hx Family Respiratory Disorders: No Hx Family Cancer: No Hx Family GI Disorders: No Hx Family Endocrine Disorder: No Hx Family Neuromuscular Disorders: No Hx Family Neurologic Disorders: No Hx Family HEENT Disorders: No Hx Family Autoimmune Disorders: No Obstetrical History - Pregnancies : 3 Para: 2 Term: 2 : 0 Ab's: 0 Livin Medications and Allergies Vit/Iron Fumarate/FA [ Tablet] 1 each PO DAILY 03/11/17 [History] Ferrous Sulfate 325 mg PO DAILY #60 tablet 04/18/17 [Rx] Aspirin 81 mg PO DAILY 10/23/18 [History] Allergy/AdvReac Type Severity Reaction Status Date / Time No Known Allergies Allergy Verified 04/16/17 05:52 Exam - Constitutional Constitutional: well developed, well nourished, no acute distress, average body habitus - Neck Neck exam: full ROM - Lungs Respiratory exam: CTAB - Cardiovascular Cardiovascular exam: RRR - Abdomen Abdomen: Present: gravid, non tender - Extremities Extremities exam: normal capillary refill, normal inspection - Cervix Dilation: 3 (Per RN) Effacement: 60 Station: -2 Results Result Diagrams: 10/23/18 08:36 Abnormal lab results Hgb 9.0 g/dL (11.5-15.4) L 10/23/18 08:36 Hct 30.3 % (35.3-44.9) L 10/23/18 08:36 MCV 73.2 fL (83.0-100.0) L 10/23/18 08:36 MCH 21.7 pg (28.0-33.3) L 10/23/18 08:36 MCHC 29.7 g/dL (31.6-35.5) L 10/23/18 08:36 RDW 16.1 % (11.5-14.5) H 10/23/18 08:36 All other labs normal. - VTE Reasons for not Prescribing Prophylaxis: Treatment not Indicated - Low risk for VTE
[2018-10-23] MEDS ORDERED: Lidocaine -MPF 2% 5 ML VIAL ONE (11:13)
--- NOTE | 2018-10-23 13:26 | OB Labor Progress Note ---
Date of Encounter: 10/23/18 Time of Encounter: 13:23 Labor Progress Note - Subjective Subjective: Patient breathing through contractions. Discussed POC with patient. Patient denies any questions or concerns. - Cervix Cervix: 5.5/80/-1 - Heart Tones Heart Tones: 130 bpm moderate variability +15x15 accels no decels noted. Cat. 1 tracing - [place]: 2.5-3 min apart - Interventions Interventions: SVE, AROM moderate clear fluid noted. Patient tolerated well. - Plan Physician notified: Yes Physician notified details: updated on POC Plan: updated on POC Continue labor management May have nubain or epidural when desires.
--- NOTE | 2018-10-23 15:06 | Anesthesia Procedures ---
Date of Encounter: 10/23/18 Time of Encounter: 13:39 Procedures: Anesthesia - Epidural/Spinal Patient ID/Chart reviewed: Yes Patient examined: Yes OB Eval: Gestational age: term OB Eval: : 3 OB Eval: Hx Para: 2 OB Eval: Contractions: Non-stressed pattern Consent Obtained: Yes Supplemental Oxygen: None/Room Air Site Prep: Aseptic Technique, Sterile prep and drape, 0.5% Chlorhexidine/Alcohol Patient position: upright Local Anesthetic: Lidocaine 1% Amount of Local Anesthetic used: 2 Touhy Needle Gauge: 18 Touhy Needle Depth (cm): 7 Catheter Depth at Skin (cm): 12 Test Dose (1.5% Lido + Epi): Volume given (mls): 4 Test Dose Result: Negative Loading Dose: Other: 10ml from solution Loading Dose Administered: Thru Catheter Infusion Med: 0.125% Bupivacaine w/ 2 mcg/ml Fentanyl Infusion Rate (mls/hr): [address]: Tegaderm, Tape Interspace Used: L3-L4 Loss of Resistance (MISSY): Yes (saline ) Blood: No CSF: Yes (25g purposeful no INJ) Paresthesia: No Procedure: vss though out, FHR stable per RN's
--- NOTE | 2018-10-23 15:56 | OB/GYN Procedure Note ---
Delivery - Delivery Date: 10/23/18 Provider: Belen Mancia Intrapartum events: none Delivery induction: AROM, misoprostol Delivery monitor: external FHT, external uterine Anesthesia: epidural Quantitated Blood Loss: 50 - (s) A Delivery Date: 10/23/18 Delivery Time: 15:35 Presentation: vertex Position: HIEN Route of delivery: forceps Viability: Viable Pounds: 6 Ounces: 14 Weight Gram: 3115 kg at 1 minute: 8 at 5 mins: 9 Shoulder Dystocia: not encountered Specimens collected: cord blood Placenta: spontaneous, uterine exploration Cord: 3 umbilical vessels - Repair Episiotomy: none Laceration Description: None - Complications Delivery complications: none - Disposition Mom disposition: stable in LDR [place] disposition: stable in LDR - Comments Comments: Called to LDR patient complete and filling pressure. Patient placed in stirrups and prepped for vaginal delivery. Under maternal effort patient spontaneously delivered a viable female infant over an intact perineum. Infant placed on maternal abdomen. Cord was clamped and cut after pulsations ceased. Cord segment and cord blood collected. Placenta delivered spontaneously and intact. EBL 50cc. Both mother and stable in LDR for 2 hour recovery. All counts correct. Dr. Waters aware of delivery.
[2018-10-23] MEDS ORDERED: Lanolin 7 G OINT...G. TP PRN (18:54)
[2018-10-23] MEDS ORDERED: Benzocaine/Menthol 56 GM AEROSOL SPRAY TP PRN (18:54)
[2018-10-23] MEDS ORDERED: Acetaminophen 325 MG TABLET PO PRN (18:54)
[2018-10-23] MEDS ORDERED: Rho Immune Globulin 1,500 UNIT SYRINGE IM PRN (18:54)
[2018-10-23] MEDS ORDERED: *HR* HYDROcodone/Acet 5/325 mg TABLET PO PRN (18:54)
[2018-10-23] MEDS: Ibuprofen 600 MG TABLET PO PRN (19:58)
[2018-10-24] MEDS ORDERED: Prenatal Vit/FA 1 EACH TABLET PO SCH (09:00)
[2018-10-24] MEDS ORDERED: NON-FORMULARY MEDICATION 1 EACH EACH (Prenatal Vit/Iron Fumarate/Fa [Prenatal Tablet] 1 EA PO SCH (09:00)
[2018-10-24] MEDS ORDERED: Aspirin 81 MG TAB.CHEW PO SCH (09:00)
[2018-10-24 09:31] VITALS: BP 115/79
[2018-10-24] MEDS: Ibuprofen 600 MG TABLET PO PRN (11:14)
--- NOTE | 2018-10-24 11:22 | Discharge Summary ---
Date of Encounter: 10/24/18 Time of Encounter: 11:18 - Discharge Diagnosis (1) Anemia affecting in third trimester Priority: Secondary Status: Acute (2) Factor II deficiency Priority: Secondary Status: Acute (3) Vaginal delivery Priority: Primary Status: Resolved Comments: Pt meeting all milestones. She reports some uterine cramping but no other complaints. She desires discharge home today. - Discharge Medications Prescriptions: New Ibuprofen [Motrin] 600 mg PO Q6HR PRN #30 tablet PRN Reason: Cramping Benzocaine/Menthol [place] [Dermoplast [place]] 1 appl TP QID PRN aerosol PRN Reason: See Comments Docusate [Colace] 100 mg PO BID #30 capsule Lanolin [Lansinoh] 1 appl TP TID PRN oint...g. PRN Reason: Sore Nipples Continued Vit/Iron Fumarate/FA [ Tablet] 1 each PO DAILY Ferrous Sulfate 325 mg PO DAILY #60 tablet Aspirin 81 mg PO DAILY Home Medications: Vit/Iron Fumarate/FA [ Tablet] 1 each PO DAILY 03/11/17 [History] Ferrous Sulfate 325 mg PO DAILY #60 tablet 04/18/17 [Rx] Aspirin 81 mg PO DAILY 10/23/18 [History] Benzocaine/Menthol [place] [Dermoplast [place]] 1 appl TP QID PRN aerosol 10/24/18 [Rx] Docusate [Colace] 100 mg PO BID #30 capsule 10/24/18 [Rx] Ibuprofen [Motrin] 600 mg PO Q6HR PRN #30 tablet 10/24/18 [Rx] Lanolin [Lansinoh] 1 appl TP TID PRN oint...g. 10/24/18 [Rx] Allergies/Adverse Reactions: Allergy/AdvReac Type Severity Reaction Status Date / Time No Known Allergies Allergy Verified 04/16/17 05:52 Data Procedures and tests throughout hospitalization: Laboratory Tests 10/23/18 10/23/18 10/23/18 08:36 08:36 16:05 WBC 8.3 RBC 4.14 Hgb 9.0 L Hct 30.3 L MCV 73.2 L MCH 21.7 L MCHC 29.7 L RDW 16.1 H Plt Count 175 MPV 11.3 Immature Gran % 0.7 Seg Neutrophils % 76.7 Lymphocytes % 14.4 Monocytes % 6.7 Eosinophils % 1.0 Basophils % 0.5 Neutrophils # 6.4 Lymphocytes # 1.2 Monocytes # 0.6 Eosinophils # 0.1 Basophils # 0.0 Urine Opiates Screen Negative Ur Barbiturates Screen Negative Ur Phencyclidine Scrn Negative Ur Amphetamines Screen Negative U Benzodiazepines Scrn Negative Urine Cocaine Screen Negative U Marijuana (THC) Screen Negative Ur Drug Screen Interp See Below Baby's Blood Type O RH NEGATIVE Mother's Blood Type O RH NEGATIVE Rhogam Indicated NO Labs on day of discharge: Labs from last 24 hours 10/23/18 16:05 Baby's Blood Type O RH NEGATIVE Mother's Blood Type O RH NEGATIVE Rhogam Indicated NO Date of admission: 10/23/18 07:59 Primary care physician: PCP NONE Consults: 10/23/18 18:54 Consult to Rocket Test Fire Worker [CONS] Routine Comment: Vaginal delivery, consult needed Discharging clinician: Saira Montes Anticipated date of discharge: 10/24/18 - Patient Status Disposition: Home, Self-Care Condition: Good Functional capacity at discharge: independent ambulation Overall status at discharge: patient is progressing back to baseline - Discharge Instructions Follow Up With: NONE,PCP [Primary Care Provider] - Hector Ricci DO [Partnered Physician] - Hospital Course Reason for admission: induction of labor Delivery: Episiotomy: none Laceration: none Other procedures: none complications: none Discharge diagnosis: IUP at term delivered baby: female Hospital course: - Delivery Date: 10/23/18 Provider: Belen Mancia Intrapartum events: none Delivery induction: AROM, misoprostol Delivery monitor: external FHT, external uterine Anesthesia: epidural Quantitated Blood Loss: 50 - Infant (s) Infant A Infant Delivery Date: 10/23/18 Infant Delivery Time: 15:35 Presentation: vertex Position: HIEN Route of delivery: forceps Viability: Viable Pounds: 6 Ounces: 14 Weight Gram: 3115 kg at 1 minute: 8 at 5 mins: 9 Shoulder Dystocia: not encountered Specimens collected: cord blood Placenta: spontaneous, uterine exploration Cord: 3 umbilical vessels - Repair Episiotomy: none Laceration Description: None - Complications Delivery complications: none - Disposition Mom disposition: home PPD1 disposition: home with mother, bottle feeding Time Attestation: Total time spent providing and/or coordinating discharge services: Time Spent: Less than 30 minutes Exam - Constitutional Vitals: Temp Pulse Resp BP Pulse Ox 98.3 F 82 12 115/79 97 10/24/18 07:45 10/24/18 07:45 10/24/18 07:45 10/24/18 07:45 10/24/18 07:45 General appearance IM: A&O X 3 - Respiratory Respiratory exam: Present: CTAB - Cardiovascular Cardiovascular exam IM: Present: RRR - GI/Abdominal GI/Abdominal exam IM: soft - External exam: normal external exam Uterine Tone: Firm Uterus Position: At Umbilicus - Extremities Exam Extremities exam IM: Present: normal inspection (SEEMA hose in place) - Neurological Exam Neurological exam: normal gait, oriented X3 - Psychiatric Additional comments: reports good mood, plans for to have vasectomy but this is not yet scheduled. Safe spacing discussed.
== END 2018-10-24 16:30 | disposition home or self-care (01) | DRG 560 ==
LOC: 1NENULAB 07:59 → 1NENUOBS 18:51
PROVIDERS: ADMIT Advanced Practice Midwife; ATTEND Advanced Practice Midwife